=== PATIENT | male | born 1970 | race Caucasian/White ===

== ENCOUNTER 2018-06-15 23:39 | Emergency (ER) | payer OTHER ==
[2018-06-16 02:49] LABS: ADD MAN DIFF? NO
[2018-06-16 02:51] LABS: WHITE BLOOD COUNT 8.8 10^3/ul (4.8-10.8)
[2018-06-16 02:51] LABS: BASOPHIL # 0.1 10^3/ul (0.0-0.1); BASOPHILS % 0.7 % (0.0-2.0); EOSINOPHILS # 0.2 10^3/ul (0.0-0.5); EOSINOPHILS % 2.6 % (0.0-7.0); HEMATOCRIT 46.1 % (42.0-52.0); HEMOGLOBIN 16.4 g/dl (14.0-18.0); LYMPHOCYTES # 3.9 10^3/ul (0.8-2.9); LYMPHOCYTES % 44.3 % (15.0-51.0); MEAN CORPUSCULAR HEMOGLOBIN 31.5 pg (29.0-33.0); MEAN CORPUSCULAR HGB CONC 35.6 g/dl (32.0-37.0); MEAN CORPUSCULAR VOLUME 88.7 fl (82.0-101.0); MEAN PLATELET VOLUME 10.3 fl (7.4-10.4); MONOCYTE # 0.7 10^3/ul (0.3-0.9); MONOCYTES % 8.4 % (0.0-11.0); NEUTROPHIL # 3.8 10^3/ul (1.6-7.5); NEUTROPHILS % 43.7 % (39.0-77.0); PLATELET COUNT 239 10^3/UL (140-415)
[2018-06-16 02:54] LABS: ADD UMIC NO; UR ASCORBIC ACID NEGATIVE (NEGATIVE); UR BILIRUBIN (Dip) NEGATIVE (NEGATIVE); UR BLOOD (Dip) NEGATIVE (NEGATIVE); UR CLARITY CLEAR (CLEAR); UR COLOR STRAW (YELLOW); UR GLUCOSE (Dip) 3+ mg/dL (NEGATIVE); UR KETONES (Dip) TRACE mg/dL (NEGATIVE); UR LEUKOCYTE ESTERASE (Dip) NEGATIVE Leu/ul (NEGATIVE); UR NITRITE (Dip) NEGATIVE (NEGATIVE); UR SPECIFIC GRAVITY (Dip) 1.031 (1.003-1.030); UR TOTAL PROTEIN (Dip) NEGATIVE (NEGATIVE); UR UROBILINOGEN (Dip) NEGATIVE (NEGATIVE)
[2018-06-16] MEDS: SOD CHLORIDE 0.9% 1,000 ML IV ×2 (03:06→04:40)
[2018-06-16 03:17] LABS: ALANINE AMINOTRANSFERASE 54 IU/L (13-69); ALBUMIN 4.5 g/dl (3.3-4.9); ALBUMIN/GLOBULIN RATIO 1.21; ALKALINE PHOSPHATASE 238 IU/L (42-121); ANION GAP 14 (8-16); ASPARTATE AMINO TRANSFERASE 38 IU/L (15-46); BILIRUBIN,INDIRECT 0.5 mg/dl (0-1.1); BILIRUBIN,TOTAL 0.5 mg/dl (0.2-1.3); BLOOD UREA NITROGEN 23 mg/dl (7-20); CALCIUM 9.5 mg/dl (8.4-10.2); CARBON DIOXIDE 28 mmol/L (21-31); CHLORIDE 100 mmol/L (97-110); CREATININE 0.96 mg/dl (0.61-1.24); GLUCOSE 372 mg/dl (70-220); POTASSIUM 3.9 mmol/L (3.5-5.1); SODIUM 138 mmol/L (135-144); TOTAL PROTEIN 8.2 g/dl (6.1-8.1)
[2018-06-16] MEDS: KETOROLAC 30 MG INJ IV (04:41)
== END 2018-06-16 05:40 | disposition home or self-care (01) ==
LOC: FTE 06-16 05:40
DX: E11.65 Type 2 diabetes mellitus with hyperglycemia (principal); I10 Essential (primary) hypertension; Z79.4 Long term (current) use of insulin
CPT/HCPCS: 36415; 80053; 81003; 82962; 85025; 96361; 96374; 99284-25

== ENCOUNTER 2018-09-18 14:02 | Emergency (ER) | payer OTHER ==
[2018-09-18 14:42] LABS: ADD MAN DIFF? NO
[2018-09-18 14:44] LABS: BASOPHIL # 0.1 10^3/ul (0.0-0.1); BASOPHILS % 0.5 % (0.0-2.0); EOSINOPHILS % 0.3 % (0.0-7.0); HEMATOCRIT 41.5 % (42.0-52.0); HEMOGLOBIN 14.2 g/dl (14.0-18.0); LYMPHOCYTES # 1.4 10^3/ul (0.8-2.9); LYMPHOCYTES % 13.4 % (15.0-51.0); MEAN CORPUSCULAR HEMOGLOBIN 30.3 pg (29.0-33.0); MEAN CORPUSCULAR HGB CONC 34.2 g/dl (32.0-37.0); MEAN CORPUSCULAR VOLUME 88.7 fl (82.0-101.0); MEAN PLATELET VOLUME 9.5 fl (7.4-10.4); MONOCYTE # 0.6 10^3/ul (0.3-0.9); MONOCYTES % 5.4 % (0.0-11.0); NEUTROPHIL # 8.5 10^3/ul (1.6-7.5); NEUTROPHILS % 79.9 % (39.0-77.0); PLATELET COUNT 250 10^3/UL (140-415); RED BLOOD COUNT 4.68 10^6/ul (4.70-6.10); RED CELL DISTRIBUTION WIDTH 12.1 % (11.5-14.5)
[2018-09-18 14:44] LABS: WHITE BLOOD COUNT 10.6 10^3/ul (4.8-10.8)
[2018-09-18 15:00] LABS: ALANINE AMINOTRANSFERASE 27 IU/L (13-69); ALBUMIN/GLOBULIN RATIO 1.14; ALKALINE PHOSPHATASE 133 IU/L (42-121); ANION GAP 10 (5-13); ASPARTATE AMINO TRANSFERASE 29 IU/L (15-46); BILIRUBIN,INDIRECT 0.8 mg/dl (0-1.1); BILIRUBIN,TOTAL 0.8 mg/dl (0.2-1.3); BLOOD UREA NITROGEN 16 mg/dl (7-20); CALCIUM 8.6 mg/dl (8.4-10.2); CARBON DIOXIDE 27 mmol/L (21-31); CHLORIDE 100 mmol/L (97-110); CREATININE 0.92 mg/dl (0.61-1.24); Estimated GFR > 60 mL/min (>60); GLUCOSE 287 mg/dl (70-220); LIPASE 106 U/L (23-300); POTASSIUM 3.9 mmol/L (3.5-5.1); SODIUM 137 mmol/L (135-144); TOTAL PROTEIN 7.5 g/dl (6.1-8.1)
[2018-09-18] MEDS: ONDANSETRON 4 MG INJ IV (15:07)
[2018-09-18] MEDS: morphine 4 MG/ML VIAL IV (15:08)
[2018-09-18 15:15] LABS: TROPONIN-I < 0.012 ng/ml (0.000-0.120)
[2018-09-18 15:24] LABS: URINE BLOOD (Dip) POC Trace-lysed (NEGATIVE); URINE KETONES (Dip) POC Negative (NEGATIVE); URINE LEUKOCYTE EST (Dip) POC Trace (NEGATIVE); URINE NITRITE (Dip) POC Negative (NEGATIVE); URINE TOTAL PROTEIN POC Negative (NEGATIVE)
== END 2018-09-18 18:10 | disposition home or self-care (01) ==
LOC: E/R 14:02
DX: R10.9 Unspecified abdominal pain (principal); I10 Essential (primary) hypertension; E11.9 Type 2 diabetes mellitus without complications; R11.0 Nausea; Z79.4 Long term (current) use of insulin
CPT/HCPCS: 36415; 71045; 74176; 80053; 81003; 83690; 84484; 85025; 93005; 96374; 96375; 99285-25

== ENCOUNTER 2018-09-18 22:11 | Emergency (ER) | payer OTHER ==
[2018-09-19 00:06] LABS: ADD MAN DIFF? NO; BASOPHILS % 0.4 % (0.0-2.0); HEMATOCRIT 43.7 % (42.0-52.0); HEMOGLOBIN 14.8 g/dl (14.0-18.0); LYMPHOCYTES # 1.3 10^3/ul (0.8-2.9); LYMPHOCYTES % 12.1 % (15.0-51.0); MEAN CORPUSCULAR HEMOGLOBIN 30.3 pg (29.0-33.0); MEAN CORPUSCULAR HGB CONC 33.9 g/dl (32.0-37.0); MEAN CORPUSCULAR VOLUME 89.5 fl (82.0-101.0); MEAN PLATELET VOLUME 9.4 fl (7.4-10.4); MONOCYTE # 0.7 10^3/ul (0.3-0.9); MONOCYTES % 6.9 % (0.0-11.0); NEUTROPHIL # 8.7 10^3/ul (1.6-7.5); NEUTROPHILS % 80.1 % (39.0-77.0); PLATELET COUNT 236 10^3/UL (140-415); RED BLOOD COUNT 4.88 10^6/ul (4.70-6.10); RED CELL DISTRIBUTION WIDTH 12.2 % (11.5-14.5)
[2018-09-19 00:06] LABS: WHITE BLOOD COUNT 10.8 10^3/ul (4.8-10.8)
[2018-09-19] MEDS: ACETAMINOPHEN 500 MG TAB PO (00:09)
[2018-09-19] MEDS: SOD CHLORIDE 0.9% 1,000 ML IV (00:10)
[2018-09-19] MEDS: KETOROLAC 30 MG INJ IV (00:10)
[2018-09-19 00:28] LABS: ALANINE AMINOTRANSFERASE 29 IU/L (13-69); ALBUMIN 3.7 g/dl (3.3-4.9); ALBUMIN/GLOBULIN RATIO 1.05; ALKALINE PHOSPHATASE 115 IU/L (42-121); ANION GAP 10 (5-13); ASPARTATE AMINO TRANSFERASE 30 IU/L (15-46); BILIRUBIN,INDIRECT 0.8 mg/dl (0-1.1); BILIRUBIN,TOTAL 0.8 mg/dl (0.2-1.3); BLOOD UREA NITROGEN 14 mg/dl (7-20); CARBON DIOXIDE 28 mmol/L (21-31); CHLORIDE 97 mmol/L (97-110); Estimated GFR > 60 mL/min (>60); GLUCOSE 234 mg/dl (70-220); LIPASE 55 U/L (23-300); POTASSIUM 4.1 mmol/L (3.5-5.1); SODIUM 135 mmol/L (135-144); TOTAL PROTEIN 7.2 g/dl (6.1-8.1)
[2018-09-19] MEDS: SOD CHLORIDE 0.9% 100 ML (00:32)
[2018-09-19] MEDS: IOHEXOL 300MG/ML 150 ML BTL (00:32)
== END 2018-09-19 01:50 | disposition home or self-care (01) ==
LOC: E/R 22:11
DX: B34.9 Viral infection, unspecified (principal); I10 Essential (primary) hypertension; E11.9 Type 2 diabetes mellitus without complications; Z79.4 Long term (current) use of insulin
CPT/HCPCS: 36415; 74177; 80053; 83605; 83690; 85025; 96374; 99285-25

== ENCOUNTER 2019-04-03 08:36 | Emergency (ER) | payer OTHER ==
[2019-04-03] MEDS: ONDANSETRON 4 MG INJ IV (09:34)
[2019-04-03] MEDS: KETOROLAC 30 MG INJ IV (09:35)
[2019-04-03] MEDS: SOD CHLORIDE 0.9% 1,000 ML IV (09:35)
[2019-04-03 09:46] LABS: ADD MAN DIFF? NO
[2019-04-03 09:50] LABS: WHITE BLOOD COUNT 13.7 10^3/ul (4.8-10.8)
[2019-04-03 09:50] LABS: BASOPHIL # 0.1 10^3/ul (0.0-0.1); BASOPHILS % 0.4 % (0.0-2.0); EOSINOPHILS # 0.1 10^3/ul (0.0-0.5); EOSINOPHILS % 0.6 % (0.0-7.0); HEMATOCRIT 45.8 % (42.0-52.0); HEMOGLOBIN 15.5 g/dl (14.0-18.0); LYMPHOCYTES # 1.9 10^3/ul (0.8-2.9); LYMPHOCYTES % 14.1 % (15.0-51.0); MEAN CORPUSCULAR HEMOGLOBIN 30.2 pg (29.0-33.0); MEAN CORPUSCULAR HGB CONC 33.8 g/dl (32.0-37.0); MEAN CORPUSCULAR VOLUME 89.1 fl (82.0-101.0); MEAN PLATELET VOLUME 9.9 fl (7.4-10.4); MONOCYTE # 0.8 10^3/ul (0.3-0.9); MONOCYTES % 5.5 % (0.0-11.0); NEUTROPHIL # 10.8 10^3/ul (1.6-7.5); PLATELET COUNT 242 10^3/UL (140-415); RED BLOOD COUNT 5.14 10^6/ul (4.70-6.10); RED CELL DISTRIBUTION WIDTH 12.6 % (11.5-14.5)
[2019-04-03 10:13] LABS: ADD UMIC YES; UR ASCORBIC ACID NEGATIVE (NEGATIVE); UR BACTERIA FEW /HPF (NONE SEEN); UR BILIRUBIN (Dip) NEGATIVE (NEGATIVE); UR BLOOD (Dip) NEGATIVE (NEGATIVE); UR CLARITY SLIGHTLY CLOUDY (CLEAR); UR COLOR YELLOW (YELLOW); UR GLUCOSE (Dip) NEGATIVE (NEGATIVE); UR KETONES (Dip) TRACE mg/dL (NEGATIVE); UR LEUKOCYTE ESTERASE (Dip) 1+ Leu/ul (NEGATIVE); UR NITRITE (Dip) POSITIVE (NEGATIVE); UR RBC 1 /HPF (0-5); UR SPECIFIC GRAVITY (Dip) 1.019 (1.003-1.030); UR TOTAL PROTEIN (Dip) NEGATIVE (NEGATIVE); UR UROBILINOGEN (Dip) NEGATIVE (NEGATIVE); UR WBC 23 /HPF (0-5)
[2019-04-03 10:14] LABS: ALANINE AMINOTRANSFERASE 38 IU/L (13-69); ALBUMIN 4.4 g/dl (3.3-4.9); ALBUMIN/GLOBULIN RATIO 1.12; ALKALINE PHOSPHATASE 127 IU/L (42-121); ANION GAP 9 (5-13); ASPARTATE AMINO TRANSFERASE 36 IU/L (15-46); BILIRUBIN,INDIRECT 1.2 mg/dl (0-1.1); BILIRUBIN,TOTAL 1.2 mg/dl (0.2-1.3); BLOOD UREA NITROGEN 15 mg/dl (7-20); CALCIUM 9.3 mg/dl (8.4-10.2); CARBON DIOXIDE 32 mmol/L (21-31); CHLORIDE 100 mmol/L (97-110); CREATININE 0.95 mg/dl (0.61-1.24); Estimated GFR > 60 mL/min (>60); GLUCOSE 185 mg/dl (70-220); LIPASE 105 U/L (23-300); POTASSIUM 3.9 mmol/L (3.5-5.1); SODIUM 141 mmol/L (135-144); TOTAL PROTEIN 8.3 g/dl (6.1-8.1)
[2019-04-03] MEDS: CEFTRIAXONE 1 GM/50 ML (PMX) 50 ML IVPB (10:34)
== END 2019-04-03 11:32 | disposition home or self-care (01) ==
LOC: FTE 11:32
DX: N39.0 Urinary tract infection, site not specified (principal); E11.9 Type 2 diabetes mellitus without complications; I10 Essential (primary) hypertension; Z79.4 Long term (current) use of insulin
CPT/HCPCS: 36415; 74176; 80053; 81001; 82962; 83690; 85025; 96361; 96365; 96375; 99285-25